=== PATIENT | female | born 2005 | race Caucasian/White ===

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

== ENCOUNTER 2023-08-08 13:42 | Outpatient (CLI) | payer OTHER ==
[2023-08-08 14:28] VITALS: BP 119/70; PULSE 120; RESP 16; TEMP 98.7
--- NOTE | 2023-09-05 09:28 | P.MSEPDOC ---
Presenting Problems - Arrival Data Date of Arrival on Unit: 08/08/23 Time of Arrival on Unit: 13:42 Mode of Transport: Ambulatory - Complaint OB-Reason for Admission/Chief Complaint: Rule Out SROM Comment: pt states that she has been leaking since yesterday. clear fluid Medical History - Information : 1 Para: 0 Term: 0 : 0 Abortions: Spontaneous or Elective: 0 Number of Living Children: 0 - Gestational Age Gestational Age by DRAGAN (wks/days): 38 Weeks and 3 Days Review of Systems - Review of Systems Constitutional: No problems Breast: No problems ENT: No problems Cardiovascular: No problems Respiratory: No problems Gastrointestinal: No problems Genitourinary: No problems Musculoskeletal: No problems Neurological: No problems Skin: No problems Vital Signs - Temperature Temperature: 98.7 F Temperature Source: Temporal Artery Scan - Pulse Pulse Oximetery Pulse Rate: 120 Pulse Assessment Method: Pulse Oximetry - Respirations Respiratory Rate: 16 Oxygen Delivery Method: Room Air O2 Sat by Pulse Oximetry: 98 - Blood Pressure Right Arm Blood Pressure: 119/70 Blood Pressure Mean: 86 Blood Pressure Source: Automatic Cuff Medical Screen Scoring - Cervical Exam Dilation (cm): 3 Effacement (%): 70 Station: -2 Membranes: Intact - Uterine Contractions Resting: Soft to palpation - Assessment - Baby A Baseline FHR: 150 Heart Rate - NICHD Category: Category I (Normal) NST: Reactive Physician Notification - Physician Notified Physician Notified Date: 08/08/23 Physician Notified Time: 14:15 Physician: Kenna Lynn New Order Received: Yes (d/c home) Maternal Triage Index - Maternal Triage Index Presenting for scheduled procedure w/no complaint: No - Stat/Priority 1 Stat Priority 1: No - Urgent/Priority 2 Urgent Priority 2: No - Prompt/Priority 3 Prompt Priority 3: No - Non-Urgent/Priority 4 Non-Urgent Priority 4: Yes Criteria Met for Priority 4: complaints of leaking fluid since yesterday Disposition - Disposition OB Disposition: Discharge to home Discharge Date: 08/08/23 Discharge Time: 14:25 I agree with the RN Medical Screening Exam: Yes Case reviewed; plan agreed upon as documented in EMR&OBIX.: Yes Diagnosis: RELATED CONDITIONS, UNSPECIFIED, THIRD TRIMESTER
== END 2023-08-08 14:25 | disposition home or self-care (01) ==
LOC: FBPOP 13:42
PROVIDERS: ATTEND Obstetrics & Gynecology Obstetrics
DX: O47.1 False labor at or after 37 completed weeks of gestation (principal); Z3A.38 38 weeks gestation of pregnancy
CPT/HCPCS: 59025; 84112; G0463; 99213

== ENCOUNTER 2023-08-11 16:04 | Outpatient (CLI) | payer OTHER ==
[2023-08-11 17:04] LABS: ALT 11 U/L (4-34); AST 20 U/L (14-36); African American GFR (CKD) >90 (>60 ml/min/1.73 sqM); Blood Urea Nitrogen 6 mg/dL (7-17); LDH 226 U/L (120-246); Non-African American GFR(CKD) >90 (>60 ml/min/1.73 sqM); Uric Acid 3.7 mg/dL (3.7-7.4)
[2023-08-11 17:08] LABS: Basophils % (A) 0 %; Eosinophils % (A) 0 %; HCT 37.5 % (34.0-46.0); HGB 11.9 gm/dL (11.4-16.0); Hypochromasia Slight; Lymphocytes # (A) 1.4 k/uL (1.0-4.8); Lymphocytes % (A) 13 %; MCH 29.7 pg (25.0-35.0); MCHC 31.7 g/dL (31.0-37.0); MCV 93.7 fL (80.0-100.0); Mean Platelet Volume 9.7; Monocytes # (A) 0.5 k/uL (0-1.0); Monocytes % (A) 5 %; Neutrophils # (A) 8.2 k/uL (1.3-7.7); Neutrophils % (A) 79 %; Platelet Count 236 k/uL (150-450); RDW 14.1 % (11.5-15.5); WBC 10.3 k/uL (4.0-11.0)
[2023-08-11 17:13] LABS: Appearance,Urine Cloudy (Clear); Bacteria,Urine Rare /hpf; Bilirubin,Urine Negative (Negative); Blood,Urine Negative (Negative); Color,Urine Yellow; Glucose,Urine (UA) Negative (Negative); Hyaline Casts,Urine 1 /lpf (0-2); Ketones,Urine Negative (Negative); Leukocyte Esterase,Urine Moderate (Negative); Mucus,Urine Rare /hpf; Nitrite,Urine Negative (Negative); PH, Urine 5.5 (5.0-8.0); Protein,Urine Negative (Negative); RBC,Urine 2 /hpf (0-5); Squamous Epithelial Cell,Urine 4 /hpf (0-4); Urobilinogen,Urine <2.0 mg/dL (<2.0); WBC,Urine 3 /hpf (0-5)
[2023-08-11 17:50] LABS: Creatinine,Urine Random 116.7 mg/dL; Protein/Creatinine Ratio,Urine 0.111
[2023-08-11 18:13] VITALS: BP 121/67; PULSE 88; RESP 16; TEMP 98.2
== END 2023-08-11 17:55 | disposition home or self-care (01) ==
LOC: FBPOP 16:04
PROVIDERS: ATTEND Obstetrics & Gynecology
DX: O13.3 Gestational [pregnancy-induced] hypertension without significant proteinuria, third trimester (principal); Z3A.38 38 weeks gestation of pregnancy
CPT/HCPCS: 59025; 81001; 82565; 82570; 83615; 84156; 84450; 84460; 84520; 84550; 85025; 99215

== ENCOUNTER 2023-08-14 18:09 | Inpatient (IN) | payer OTHER ==
[2023-08-14] MEDS ORDERED: miSOPROStoL 200 MCG TAB RECTAL PRN (18:38)
[2023-08-14] MEDS ORDERED: CARBOPROST TROMETHAMINE 250 MCG/ML 1 ML AMP IM PRN (18:38)
[2023-08-14] MEDS ORDERED: OXYTOCIN 10 UNIT/ML 1 ML VIAL IM PRN (18:38)
[2023-08-14] MEDS ORDERED: TRANEXAMIC 1,000 MG/100ML-NACL 1,000 MG in EMPTY BAG 1 BAG IV PRN (18:38)
[2023-08-14] MEDS ORDERED: METHYLERGONOVINE 0.2 MG/ML 1 ML AMP IM PRN (18:38)
[2023-08-14] MEDS ORDERED: TERBUTALINE 1 MG/ML VIAL SQ PRN (18:38)
[2023-08-14] MEDS ORDERED: miSOPROStoL 200 MCG TAB PO PRN (18:38)
[2023-08-14] MEDS: LACTATED RINGERS 1,000 ML IV SCH (19:15)
[2023-08-14 19:29] LABS: Basophils % (A) 0 %; Eosinophils # (A) 0.1 k/uL (0-0.7); Eosinophils % (A) 0 %; HCT 35.6 % (34.0-46.0); HGB 11.5 gm/dL (11.4-16.0); Lymphocytes # (A) 1.5 k/uL (1.0-4.8); Lymphocytes % (A) 14 %; MCH 29.4 pg (25.0-35.0); MCHC 32.2 g/dL (31.0-37.0); MCV 91.1 fL (80.0-100.0); Mean Platelet Volume 9.7; Monocytes # (A) 0.6 k/uL (0-1.0); Monocytes % (A) 6 %; Neutrophils # (A) 8.4 k/uL (1.3-7.7); Neutrophils % (A) 78 %; Platelet Count 235 k/uL (150-450); RBC 3.91 m/uL (3.80-5.40); RDW 14.4 % (11.5-15.5); WBC 10.8 k/uL (4.0-11.0)
[2023-08-14] MEDS: OXYTOCIN 30 UNITS/500 ML NS 30 UNIT in SALINE 1 500ML.BAG IV SCH (21:00)
--- NOTE | 2023-08-14 21:14 | P.HPOB ---
History of Present Illness H&P Date: 08/14/23 Chief Complaint: 39+ weeks, spontaneous rupture of membranes Patient is a 17-year-old 1 para 0 admitted at 39+ weeks as established by last menstrual period and confirmed by 7-week ultrasound. She is admitted with documented spontaneous rupture of membranes and minimal contractions. On labor delivery, all signs are reassuring with a category 1 heart rate tr acing. Her has been uncomplicated and group B strep status is negative. She is known to be Rh- and received RhoGAM at 28 weeks. Obstetrical history: 1 para 0 with current statistics listed in history of present illness. EDC of 08/18/2023 was established by last menstrua l period and confirmed by 7-week ultrasound. Laboratory workup demonstrates a blood type of O negative with a negative antibody screen. Rubella status is immune. The remainder of the laboratory workup was within normal limits. 1 hour Glucola was normal and group B strep status is negative. Gynecologic history: Unremarkable with no history of any infections to include STDs. Review of Systems Review of systems is confined to history of present illness. Past Medical History Past Medical History: No Reported History History of Any Multi-Drug Resistant Organisms: None Reported Additional Past Surgical History / Comment(s): eye surgery, Past Anesthesia/Blood Transfusion Reactions: No Reported Reaction Past Psychological History: Anxiety Smoking Status: Never smoker Past Alcohol Use History: None Reported Past Drug Use History: None Reported - Past Family History Father Family Medical History: No Reported History Medications and Allergies Home Medications Medication Instructions Recorded Confirmed Type No Known Home Medications 08/14/15 08/11/23 History Allergies Allergy/AdvReac Type Severity Reaction Status Date / Time No Known Allergies Allergy Verified 08/14/23 18:17 Exam Vital Signs Temp Pulse Resp BP Pulse Ox 08/14/23 18:49 98 F 115 H 16 123/80 98 08/14/23 18:40 98.0 F 115 H 16 123/80 98 Intake and Output 08/14/23 08/14/23 08/14/23 06:59 14:59 22:59 Other: Weight 77.564 kg General, this is a well-developed, well-nourished white female in no acute distress. Her heart has a regular rhythm and rate without murmur. Her lungs are clear to auscultation bilaterally in all garza. Her abdomen is gravid, nondistended, has normal active bowel sounds, soft, nontender, and without any palpable masses aside from the uterine fundus. Her extremities are without any cyanosis, clubbing, or significant edema and are nontender to palpation bilaterally. Digital cervical examination performed by the nursing staff demonstrates her cervix to be 5+ centimeters dilated, 80% effaced, with a vertex and presentation at -2 station. Spontaneous rupture of membranes has been documented. Results Result Diagrams: 08/14/23 19:12 Abnormal Lab Results - Last 24 Hours (Table) 08/14/23 Range/Units 19:12 Neutrophils # 8.4 H (1.3-7.7) k/uL Assessment and Plan (1) Active labor at term Current Visit: Yes Status: Acute Code(s): [id number] - SNOMED Code(s): 82579435 (2) Spontaneous rupture of membranes Current Visit: Yes Status: Acute Code(s): OWU5099 - SNOMED Code(s): 396448017 Plan: Patient is admitted for active management of labor. She will have close maternal and surveillance and expectant management will be practiced. She is a good candidate for IV, epidural, or OB nitrous analgesia, whichever she may choose.
[2023-08-14] MEDS: NALBUPHINE 10 MG/ML (10 ML MDV) IV PRN (21:37)
[2023-08-14] MEDS ORDERED: SODIUM CHLORIDE 0.9% 250 ML BAG ONE (23:31)
[2023-08-14] MEDS ORDERED: ROPIVACAINE 5 MG/ML 30 ML VIAL ONE (23:31)
[2023-08-14] MEDS ORDERED: fentaNYL (PF) 50 MCG/ML 5 ML AMP ONE (23:31)
[2023-08-15] MEDS ORDERED: HYDROCORTISONE 2.5% RECTAL CREAM 30 GM TUBE RECTAL PRN (08:35)
[2023-08-15] MEDS ORDERED: LANOLIN CREAM 1 GM TUBE TOPICAL PRN (08:35)
[2023-08-15] MEDS ORDERED: diphenhydrAMINE 50 MG/ML 1 ML VIAL IVP PRN ×2 (08:35)
[2023-08-15] MEDS ORDERED: HYDROcodone/APAP 5-325MG 1 EACH TAB PO PRN (08:35)
[2023-08-15] MEDS ORDERED: BENZOCAINE/MENTHOL SPRAY 1 GM/SPRAY AEROSOL TOPICAL PRN (08:35)
[2023-08-15] MEDS ORDERED: HYDROcodone/APAP 7.5-325MG 1 EACH TAB PO PRN (08:35)
[2023-08-15] MEDS ORDERED: SIMETHICONE 80 MG CHEWABLE PO PRN (08:35)
[2023-08-15] MEDS ORDERED: ZOLPIDEM 5 MG TAB PO PRN (08:35)
[2023-08-15] MEDS ORDERED: diphenhydrAMINE 50 MG CAP PO PRN (08:35)
[2023-08-15] MEDS ORDERED: diphenhydrAMINE 25 MG CAP PO PRN (08:35)
--- NOTE | 2023-08-15 08:40 | P.PROBDLV ---
Vaginal Delivery Note - . Vaginal Delivery Note: Patient is a 24-year-old 1 para 0 admitted at 49-2/7 weeks with documented spontaneous rupture of membranes. Her has been uncomplicated though she is Rh- and received RhoGAM at 28 weeks. On labor delivery, all signs are reassuring with a category 1 heart rate tracing. She was making minimal progress through the earlier phase of labor and had Pitocin augmentation started. She ultimately progressed to the active phase of labor and had an epidural catheter placed for analgesia. She made progress through the night to complete and ultimately pushed over the course of approximately 1 hour to a normal spontaneous vaginal delivery of a viable 8 pound 9 ounce baby girl with Apgars of 8 at 1 minute and 8 at 5 minutes delivered in the direct occiput anterior position. The placenta was delivered spontaneously, intact, and grossly normal with a grossly normal, centrally inserted three-vessel cord. There was 1/4 degree perineal laceration noted which was repaired in standard fashion closing the rectal mucosa with a subcuticular stitch of 3-0 chromic. The external anal sphincter was reapproximated in 4 quadrants with [id number] stitches of 2-0 Vicryl. The remainder of the repair was closed in standard fashion using 3-0 chromic catgut. The repair was excellent in terms of support following closure. Estimated blood loss for the case was approximately 450 mL. There were no complications aside from the fourth degree laceration. All sponge, instrument, and needle counts were correct. Both mother and infant are resting comfortably in recovery though the has been taken to the special care nursery for supplemental o xygen secondary to low saturation.
[2023-08-15] MEDS ORDERED: OXYTOCIN 30 UNITS/500 ML NS 30 UNIT in SALINE 1 500ML.BAG IV SCH (08:45)
[2023-08-15] MEDS: LIDOCAINE 0.5% (PF) 5 MG/ML (50 ML SDV) SQ PRN (08:54)
[2023-08-15] MEDS: ACETAMINOPHEN TAB 325 MG TAB PO PRN (08:54)
[2023-08-15] MEDS: IBUPROFEN 600 MG TAB PO PRN (12:19)
[2023-08-15] MEDS: SENNOSIDES-DOCUSATE SODIUM 1 EACH TAB PO SCH (20:04)
[2023-08-16 05:34] LABS: Basophils % (A) 0 %; Eosinophils % (A) 0 %; HCT 23.9 % (34.0-46.0); Hypochromasia Slight; Lymphocytes # (A) 2.1 k/uL (1.0-4.8); Lymphocytes % (A) 16 %; MCH 29.9 pg (25.0-35.0); MCHC 31.9 g/dL (31.0-37.0); MCV 93.6 fL (80.0-100.0); Mean Platelet Volume 9.9; Monocytes # (A) 0.7 k/uL (0-1.0); Monocytes % (A) 5 %; Neutrophils # (A) 10.6 k/uL (1.3-7.7); Neutrophils % (A) 77 %; Platelet Count 184 k/uL (150-450); RBC 2.55 m/uL (3.80-5.40); RDW 14.7 % (11.5-15.5); WBC 13.8 k/uL (4.0-11.0)
[2023-08-16 05:42] LABS: HGB 7.6 gm/dL (11.4-16.0)
[2023-08-16 09:17] VITALS: BP 126/79; PULSE 112; RESP 16; TEMP 97.9
--- NOTE | 2023-08-16 11:31 | P.DS ---
Providers Date of admission: 08/14/23 18:38 Expected date of discharge: 08/16/23 Attending physician: Ilana Carias MD Primary care physician: Stated None - Discharge Diagnosis(es) (1) Active labor at term Current Visit: Yes Status: Acute (2) Spontaneous rupture of membranes Current Visit: Yes Status: Acute (3) Normal spontaneous vaginal delivery Current Visit: Yes Status: Acute Hospital Course: The patient is a 17-year-old 1 para 0 admitted at 39+ weeks by good dating parameters. She is admitted with documented spontaneous rupture of membranes. On labor delivery, all signs were reassuring with a category 1 heart rate tracing. Her was uncomplicated and group B strep status is negative. She is Rh- and received RhoGAM at 28 weeks. She had Pitocin augmentation started and an epidural catheter placed for analgesia. She progressed through the active phase of labor to complete and ultimately pushed to a normal spontaneous vaginal delivery of a viable 8 pound 9 ounce baby girl with Apgars of 8 at 1 minute and 8 at 5 minutes. She did have 1/4 degree perineal laceration which was repaired in standard fashion with an excellent result following repair. Her course was unremarkable with vital signs remaining stable and her temperature was afebrile throughout. She was deemed stable for discharge on day #1 was discharged home to follow- up in the office in 6 weeks time routinely. Discharge instructions included calling for any significantly increased bleeding or foul-smelling lochia, significantly increased fever or abdominal pain, perineal complaints, breast complaints, or anything else that concerned her. She was additionally instructed to continue stool softeners for at least 2 weeks as the repair heals. She understood her instructions and agrees to follow-up as noted above. Discharge medications included continued vitamins as she has opted to breast-feed. She additionally was to use [id number] analgesic pain medications as needed. Maternal blood type is O- and cord blood was sent for the evaluation of the necessity of RhoGAM prior to discharge. Rubella status is immune. Procedures: #1. Pitocin augmentation #2. Epidural analgesia #3. Normal spontaneous vaginal delivery #4. Repair of fourth degree perineal laceration Patient Condition at Discharge: Stable Plan - Discharge Summary New Discharge Prescriptions: No Action No Known Home Medications Discharge Medication List No Known Home Medications 08/14/15 [History] Follow up Appointment(s)/Referral(s): Ilana Carias MD [STAFF PHYSICIAN] - 6 Weeks Discharge Disposition: HOME SELF-CARE
== END 2023-08-16 13:55 | disposition home or self-care (01) | DRG 542 ==
LOC: FBPOP 18:09 → 4FBP 18:38
PROVIDERS: ADMIT Obstetrics & Gynecology; ATTEND Obstetrics & Gynecology
PROC: 0DQP0ZZ Repair Rectum, Open Approach (ICD-10-PCS; principal; 2023-08-15)
PROC: 10E0XZZ Delivery of Products of Conception, External Approach (ICD-10-PCS; principal; 2023-08-15)
DX: O70.3 Fourth degree perineal laceration during delivery (principal); Z3A.39 39 weeks gestation of pregnancy; Z28.310 Unvaccinated for COVID-19; Z37.0 Single live birth
CPT/HCPCS: 59025; 84112; 85025; 86850; 86900; 86901; 99213